=== PATIENT | male | born 1995 | race Hispanic/Latino ===

== ENCOUNTER 2024-04-11 02:34 | Emergency (ER) | payer OTHER ==
[~2024-04-11] VITALS: Ht 175.3 cm; Wt 76.4 kg
[~2024-04-11 02:34] MED LIST: PRILOSEC OTC20 MG PO
[2024-04-11 03:13] VITALS: BP 123/91
== END 2024-04-11 03:14 | disposition home or self-care (01) ==
LOC: ED 02:34
DX: S00.81XA Abrasion of other part of head, initial encounter (principal); X58.XXXA Exposure to other specified factors, initial encounter
CPT/HCPCS: 12011; 99282